=== PATIENT | female | born 1970 | race Caucasian/White ===

== ENCOUNTER 2018-12-11 18:43 | Emergency (ER) | payer OTHER ==
[2018-12-11 19:05] VITALS: BP 138/66
[2018-12-11] MEDS ORDERED: AMOXICILLIN TRIHYDRATE 500 MG CAPSULE PO ONE (19:20)
--- NOTE | 2018-12-11 19:21 | ER Document Report ---
HPI - HPI Patient complains to provider of: ear pain Time Seen by Provider: 12/11/18 19:04 Onset: Other - 2 wks Onset/Duration: Persistent Pain Level: 4 Context: Patient presents complaining of left ear pain for the past 2 weeks. Patient has some decreased hearing as well. Patient states that she had been seen at the [facility] for this complaint on 11/25/2018 and placed on Ciprodex. Patient was re-seen on 11/30/2018 Antivert for dizziness. Patient was reevaluated on 12/08/2018 and states that she just had labs performed and was told that her blood sugar was elevated. Patient denies any fever. Associated Symptoms: Earache. denies: Fever Exacerbated by: Denies Relieved by: Denies Similar symptoms previously: No Recently seen / treated by doctor: Yes - ROS ROS below otherwise negative: Yes Systems Reviewed and Negative: Yes All other systems reviewed and negative - CONSTITUTIONAL Constitutional: DENIES: Fever - EENT EENT: REPORTS: Ear Pain - L ear pain. DENIES: Congestion - NEURO Neurology: REPORTS: Dizzinesss / Vertigo - GASTROINTESTINAL Gastrointestinal: DENIES: Nausea, Patient vomiting - REPRODUCTIVE Reproductive: DENIES: : - DERM Skin Color: Normal Skin Problems: None Past Medical History - General Information source: Patient - Social History Smoking Status: Current Every Day Smoker Chew tobacco use (# tins/day): No Frequency of alcohol use: Rare Drug Abuse: None Occupation: None Lives with: Family Family History: Reviewed & Not Pertinent Patient has suicidal ideation: No Patient has homicidal ideation: No - Past Medical History Cardiac Medical History: Reports: Hx Atrial Fibrillation, Hx Hypercholesterolemia Renal/ Medical History: Denies: Hx Peritoneal Dialysis Musculoskeletal Medical History: Reports Hx Arthritis Past Surgical History: Reports: Hx Cardiac Catheterization, Hx Hysterectomy Vertical Provider Document - CONSTITUTIONAL Agree With Documented VS: Yes Exam Limitations: No Limitations General Appearance: WD/WN, No Apparent Distress - INFECTION CONTROL TRAVEL OUTSIDE OF THE [place] IN LAST 30 DAYS: No - HEENT HEENT: Atraumatic, Normocephalic. negative: Pharyngeal Exudate, Pharyngeal Tenderness, Pharyngeal Erythema, Tympanic Membrane Red, Tympanic Membrane Bulging Notes: Normal right TM, left TM unable to be visualized due to purulent drainage. No swelling to the left external auditory canal. No pain with movement of left helix. No mastoid tenderness or swelling. After culture was performed, patient had improved hearing with some of the drainage removed on the swab. - NECK Neck: Normal Inspection, Supple. negative: Lymphadenopathy-Left, Lymphadenopathy-Right - RESPIRATORY Respiratory: Breath Sounds Normal, No Respiratory Distress - CARDIOVASCULAR Cardiovascular: Regular Rate, Regular Rhythm - MUSCULOSKELETAL/EXTREMETIES Musculoskeletal/Extremeties: MAEW - NEURO Level of Consciousness: Awake, Alert, Appropriate Motor/Sensory: No Motor Deficit - DERM Integumentary: Warm, Dry, No Rash Course - Re-evaluation Re-evalutation: 12/11/18 Patient without any pain to the left ear with movement of the helix. Suspect likely perforated left acute otitis media. Patient had already been on a 10-day course of topical antibiotics to treat the reported otitis externa. Patient encouraged to follow-up with ENT for further evaluation given the duration of her symptoms. - Vital Signs Vital signs: Temp Pulse Resp BP Pulse Ox 97.9 F 86 18 138/66 H 98 12/11/18 19:03 12/11/18 19:03 12/11/18 19:03 12/11/18 19:03 12/11/18 19:03 Discharge - Discharge Clinical Impression: Otitis media Qualifiers: Otitis media type: suppurative Chronicity: acute Laterality: left Recurrence: not specified as recurrent Spontaneous tympanic membrane rupture: with spo ntaneous rupture Qualified Code(s): H66.012 - Acute suppurative otitis media with spontaneous rupture of ear drum, left ear Condition: Stable Disposition: HOME, SELF-CARE Instructions: Amoxicillin ([facility]), Otitis Media ([facility]) Additional Instructions: Return immediately for any new or worsening symptoms Followup with your primary care provider, call tomorrow to make a followup appointment Follow-up with an 4 year olds preschool teacher for further evaluation, call tomorrow for an appointment Prescriptions: Amoxicillin 500 mg PO TID #30 tablet Forms: Smoking Cessation Education Referrals: [facility] [Provider Group] - Follow up tomorrow
== END 2018-12-11 19:36 | disposition home or self-care (01) ==
LOC: ER 18:43
DX: H66.012 Acute suppurative otitis media with spontaneous rupture of ear drum, left ear (principal); H92.02 Otalgia, left ear; R42 Dizziness and giddiness; H91.90 Unspecified hearing loss, unspecified ear; F17.200 Nicotine dependence, unspecified, uncomplicated
CPT/HCPCS: 87070; 87205; 99282

== ENCOUNTER 2018-12-13 16:57 | Emergency (ER) | payer OTHER ==
--- NOTE | 2018-12-13 19:48 | ER Document Report ---
HPI - HPI Time Seen by Provider: 12/13/18 19:20 Pain Level: 5 Context: Patient is a 48-year old female who presents to the emergency department with a chief complaint of left ear pain. Patient states she has had left ear pain since November 25. She reports she has been to the [facility] times for this discomfort and was placed on Ciprodex, Antivert for dizziness, and for the third time they irrigated her ear. Patient states she was seen here 2 days ago and placed on amoxicillin. Patient reports that her ear pain is still present and not getting any better. Patient states her culture did come back as a fungal infection and wanted to get the appropriate treatment. Patient states she is attempted to call [facility] yesterday and today but has not been able to get through with the office. Patient denies fever. Patient denies sore throat. - CONSTITUTIONAL Constitutional: DENIES: Fever, Chills - EENT EENT: REPORTS: Ear Pain - left ear. DENIES: Sore Throat, Eye problems - NEURO Neurology: DENIES: Headache, Weakness, Vision blurred, Dizzinesss / Vertigo - CARDIOVASCULAR Cardiovascular: DENIES: Chest pain - RESPIRATORY Respiratory: DENIES: Trouble Breathing, Coughing - GASTROINTESTINAL Gastrointestinal: DENIES: Abdominal Pain, Black / Bloody Stools - URINARY Urinary: DENIES: Dysuria, Urgency, Frequency - REPRODUCTIVE Reproductive: DENIES: : - MUSCULOSKELETAL Musculoskeletal: DENIES: Extremity pain Past Medical History - General Information source: Patient - Social History Smoking Status: Current Every Day Smoker Chew tobacco use (# tins/day): No Frequency of alcohol use: Occasional Drug Abuse: None Lives with: Alone Family History: Reviewed & Not Pertinent Patient has suicidal ideation: No Patient has homicidal ideation: No - Past Medical History Cardiac Medical History: Reports: Hx Atrial Fibrillation, Hx Hypercholesterolemia Pulmonary Medical History: Reports: None EENT Medical History: Reports: None Neurological Medical History: Reports: None Endocrine Medical History: Reports: Hx Diabetes Mellitus Type 2 Renal/ Medical History: Reports: None. Denies: Hx Peritoneal Dialysis Malignancy Medical History: Reports: None GI Medical History: Reports: None Musculoskeletal Medical History: Reports Hx Arthritis Skin Medical History: Reports None Psychiatric Medical History: Reports: None Traumatic Medical History: Reports: None Infectious Medical History: Reports: None Past Surgical History: Reports: Hx Cardiac Catheterization, Hx Hysterectomy Vertical Provider Document - CONSTITUTIONAL Agree With Documented VS: Yes Exam Limitations: No Limitations General Appearance: No Apparent Distress - INFECTION CONTROL TRAVEL OUTSIDE OF THE [place] IN LAST 30 DAYS: No - HEENT HEENT: Atraumatic, Normocephalic, PERRLA Notes: Right ear exam was unremarkable without mastoid, tragus or pinna tenderness. I was able to easily visualize the tympanic membrane and did not appreciate any bulging, discharge or erythema. Left ear exam revealed tenderness to the tragus, there is no mastoid or pinna tenderness. I was unable to visualize the tympanic membrane as there is a large amount of yellow and white exudate in the ear canal. There is some erythema to the inner canal. Do not appreciate any external cellulitis. - NECK Neck: Normal Inspection, Supple - RESPIRATORY Respiratory: Breath Sounds Normal, No Respiratory Distress - CARDIOVASCULAR Cardiovascular: Regular Rate, Regular Rhythm - GI/ABDOMEN Gastrointestinal: Abdomen Soft, Abdomen Non-Tender, Normal Bowel Sounds - NEURO Level of Consciousness: Awake, Alert, Appropriate - DERM Integumentary: Warm, Dry, No Rash Course - Re-evaluation Re-evalutation: 12/13/18 20:05 I did consult with Dr. Porter at [facility] as the ear culture showed a fungal infection; he recommends the following: [place] 08/11/2024 every 6 hours as needed for pain Head of bed elevated when sleeping Vosol HC 6 drops BID x 2 weeks - if pharmacy does not have a available the pat ient may use white vinegar 6 drops in the left ear twice a day for the next 2 weeks. He did reiterate this is white vinegar only and not other types of vinegar. Westcort 0.2% cream medium strength potency to be applied nightly, apply a pea- sized to the inside of the ear canal and massage the tragus area for 2 weeks. I will send him the patient's information and telephone number so he can contact the patient next week for a follow-up. I did inform the patient of this. Patient states she does not want Steel[place]. Patient states she has a history of drug abuse. Patient states that she would like to try Ultram although she knows it has narcotic-like effects. I did inform the patient this can make her drowsy and to not drive or operate heavy machinery while on this medication. Patient verbalizes understanding. I did reiterate to the patient to use white vinegar only as an alternative to the drops. 12/13/18 20:35 - Vital Signs Vital signs: Temp Pulse Resp BP Pulse Ox 97.7 F 90 17 148/83 H 97 12/13/18 17:04 12/13/18 17:04 12/13/18 17:04 12/13/18 17:04 12/13/18 17:04 Discharge - Discharge Clinical Impression: Fungal ear infection Condition: Stable Disposition: HOME, SELF-CARE Additional Instructions: Today you are seen in the emergency department for left ear pain. Your culture did come back positive for a fungal infection. I did speak with Dr. Porter with [facility]. He states to use the following prescriptions: Vosol HC otic solution 6 drops to the left ear twice a day for 2 weeks -if the pharmacy does not carry this medication and alternative is to use white vinegar. This does not include red wine vinegar or apple cider vinegar, this is STRICKLY WHITE VINEGAR ONLY, to be applied the same way, 6 drops to the left ear twice a day for 2 weeks. He also suggested prescribing a ointment called Westcort 0.2% ointment, we will apply a small pea-sized amount to the inside of the left ear canal every night before bed. Please massage the ear afterwards. He did recommend prescribing you [place]. As we have discussed we agreed on prescribing you Ultram. Ultram is narcotic-like and can make you drowsy. Pleas e take this every 6 hours as needed for pain. Do not drive while on this medication. I have given Dr. Porter your information and his office will be in contact with you next week for a follow up appointment. Please return to the emergency department in the meantime if you develop any severe pain, facial swelling, fever or any other concerns. Dr. Dorsey also recommends raising the head of the bed when you sleep at night. Do not lay flat. Prescriptions: Tramadol HCl [Ultram] 50 mg PO Q6 #15 tablet Referrals: ALTAGRACIA PORTER, [ASSOCIATE] - Follow up as needed
[2018-12-13 20:12] VITALS: BP 114/73
== END 2018-12-13 20:34 | disposition home or self-care (01) ==
LOC: ER 16:57
DX: H66.90 Otitis media, unspecified, unspecified ear (principal); B49 Unspecified mycosis; H92.02 Otalgia, left ear; F17.200 Nicotine dependence, unspecified, uncomplicated; E11.9 Type 2 diabetes mellitus without complications
CPT/HCPCS: 99282

== ENCOUNTER → 2019-07-11 | Outpatient (CLI) | payer OTHER ==
--- NOTE | 2019-07-11 18:37 | RADIOLOGY REPORT (SQ) ---
EXAM DESCRIPTION: CT BONE LENGTH IMAGES COMPLETED DATE/TIME: 07/11/2019 11:21 am REASON FOR STUDY: LLD (Q72.819) Q72.819 CONGENITAL SHORTENING OF UNSPECIFIED LOWER LIMB COMPARISON: None. TECHNIQUE: CT scanogram of the bilateral lower extremities is performed including pelvis to ankles. Measurements of femur, tibia, and entire lower extremities performed by the radiologist and saved to PACS. All CT scanners at this facility use dose modulation, iterative reconstruction, and/or weight based d osing when appropriate to reduce radiation dose to as low as reasonably achievable (ALARA). [facility]: Dose Right [facility]: CareDose [facility]: Dose Right [facility]: Teradose 4D [facility]: [employer] RADIATION DOSE: 0.01 MGy. LIMITATIONS: None. FINDINGS: RIGHT: FEMUR: 42.4 cm. TIBIA: 33.9 cm. TOTAL RIGHT LOWER EXTREMITY LENGTH: 76.5 cm. LEFT: FEMUR: 42.5 cm. TIBIA: 34.0 cm. TOTAL LEFT LOWER EXTREMITY LENGTH: 77.2 cm. IMPRESSION: LEG LENGTH MEASUREMENTS DETAILED ABOVE. TECHNICAL DOCUMENTATION: JOB ID: [id number] Quality ID # [id number]: Final reports with documentation of one or more dose reduction techniques (e.g., Au tomated exposure control, adjustment of the mA and/or kV according to patient size, use of iterative reconstruction technique) 2010 [employer]- All Rights Reserved Reading location - IP/workstation name: [id number]
== END ==
LOC: RAD 10:52
PROVIDERS: ATTEND Podiatrist Foot & Ankle Surgery
DX: Q72.819 Congenital shortening of unspecified lower limb (principal)
CPT/HCPCS: 77073